=== PATIENT | female | born 1975 | race Caucasian/White ===

== ENCOUNTER 2021-05-02 08:48 | Emergency (ER) | payer MEDICAID ==
[~2021-05-02] VITALS: Ht 152.4 cm; Wt 86.4 kg
[2021-05-02 09:07] VITALS: BP 138/68
--- NOTE | 2021-05-02 09:14 | NUR ---
TENT 3
--- NOTE | 2021-05-02 09:15 | NUR ---
BIB SELF C/O COUGH, DELGADO, BODY ACHE, LEFT CHEST PAIN X 3 DAYS. PMH:DENIES
--- NOTE | 2021-05-02 14:13 | NUR ---
COVID ROSALIA SWAB DONE.
--- NOTE | 2021-05-02 14:19 | NUR ---
[facility] SPECIMEN SENT TO LAB.
[2021-05-02 14:25] LABS: APPEARANCE,URINE CLOUDY (CLEAR); BILIRUBIN,URINE NEGATIVE (NEGATIVE); BLOOD, URINE 3+ (NEGATIVE); COLOR,URINE YELLOW (YELLOW); LEUKOCYTE ESTERASE ,URINE TRACE (NEGATIVE); NITRITE, URINE POSITIVE (NEGATIVE); UGLUCOSE NEGATIVE (NEGATIVE)
[2021-05-02 14:29] LABS: RBC,URINE 80-100 /HPF (0-5)
[2021-05-02 14:33] LABS: BASOPHILS # (AUTO) 0.1 K/uL (0.00-0.22); BASOPHILS % (AUTO) 0.7 % (0.0-2.0); EOSINOPHILS # (AUTO) 0.2 K/uL (0-0.4); EOSINOPHILS % (AUTO) 1.4 % (0.0-4.0); HEMATOCRIT 35.7 % (36-48); HEMOGLOBIN 11.7 g/dL (12.0-16.0); LYMPHOCYTES # (AUTO) 3.4 K/uL (2.5-16.5); LYMPHOCYTES % (AUTO) 28.1 % (20.5-51.1); MEAN CORPUSCULAR HEMOGLOBIN 27 pg (27-31); MEAN CORPUSCULAR HGB CONC 33 g/dL (33-37); MEAN CORPUSCULAR VOLUME 83.1 fL (80-94); MONOCYTES # (AUTO) 0.8 K/uL (0.8-1.0); MONOCYTES % (AUTO) 6.5 % (1.7-9.3); NEUTROPHILS # (AUTO) 7.6 K/uL (1.8-7.7); NEUTROPHILS % (AUTO) 63.3 % (42.2-75.2); PLATELET COUNT (AUTO) 375 K/uL (140-450); RED CELL DISTRIBUTION WIDTH 14.9 % (11.6-13.7); WHITE BLOOD COUNT (AUTO) 12.1 K/uL (4.8-10.8)
[2021-05-02 14:43] LABS: ANION GAP 12.4 (8-16); CARBON DIOXIDE 26.4 mmol/L (21-32); CREATININE 0.7 mg/dL (0.6-1.3); POTASSIUM 3.8 mmol/L (3.5-5.1)
[2021-05-02] MEDS ORDERED: CEPH-588 PO (15:41)
[2021-05-02 16:00] VITALS: BP 145/79
--- NOTE | 2021-05-02 16:00 | NUR ---
Lab work, RAD, Covid results printed and handed to pt.
== END 2021-05-02 16:05 | disposition home or self-care (01) ==
LOC: MED 08:48
DX: J06.9 Acute upper respiratory infection, unspecified (principal); Z20.822 Contact with and (suspected) exposure to COVID-19; N39.0 Urinary tract infection, site not specified; Z79.899 Other long term (current) drug therapy
CPT/HCPCS: 36415; 71045; 80048; 81001; 84484; 85025; 87086; 93005; 99285

== ENCOUNTER 2021-12-13 08:48 | Emergency (ER) | payer MEDICAID ==
[~2021-12-13] VITALS: Ht 152.4 cm; Wt 86.2 kg
[~2021-12-13 08:48] MED LIST: CEPH-588 PO
[2021-12-13 08:58] VITALS: BP 140/71
[2021-12-13] MEDS ORDERED: HYDROcodone/APAP 10/325 MG 1 TAB TAB PO ONE (09:20)
--- NOTE | 2021-12-13 09:20 | NUR ---
US AT BEDSIDE
--- NOTE | 2021-12-13 09:22 | NUR ---
46 Y/O FEMALE C/O RIGHT BREAST PAIN 06/04 DESCRIBES BURNING X4DAYS. DENIES FEVER/CHILLS. DENIES N/V/D. PT ALSO C/O HEADACHE. PT STATES SHE USED COLD COMPRESSES WITH SOME RELIEF. DENIES PMH NKA
[2021-12-13] MEDS ORDERED: LIDOCAINE/EPI 2% 1:100000 20 ML VIAL INJ ONE (10:10)
[2021-12-13] MEDS ORDERED: CLIN300C2 PO (12:43)
[2021-12-13] MEDS ORDERED: IBUP-2213 PO (12:43)
[2021-12-13] MEDS ORDERED: HYDR-5080 PO (12:43)
[2021-12-13 13:17] VITALS: BP 142/73
--- NOTE | 2021-12-13 13:19 | NUR ---
Patient discharged with v/s stable. Written and verbal after care instructions given and explained. Patient alert, oriented and verbalized understanding of instructions. Ambulatory with steady gait. All questions addressed prior to discharge. ID band removed. Patient advised to follow up with PMD. Rx of CLINDAMYCIN, NORCO, IBUPROFEN given. Patient educated on indication of medication including possible reaction and side effects. Opportunity to ask questions provided and answered.
== END 2021-12-13 13:19 | disposition home or self-care (01) ==
LOC: MED 08:48
DX: N61.1 Abscess of the breast and nipple (principal); Z79.899 Other long term (current) drug therapy
CPT/HCPCS: 10060; 76641; 99284; J2001; Q0092

== ENCOUNTER 2021-12-14 15:20 | Emergency (ER) | payer MEDICAID ==
[~2021-12-14] VITALS: Ht 152.4 cm; Wt 86.2 kg
[~2021-12-14 15:20] MED LIST changes: +CLIN300C2 PO; +HYDR-5080 PO; +IBUP-2213 PO
--- NOTE | 2021-12-14 15:36 | NUR ---
PT AMBULATED TO ER BED 9 WITH A STEADY GAIT FOR BEDSIDE TRIAGE.
[2021-12-14 15:37] VITALS: BP 132/89
--- NOTE | 2021-12-14 15:42 | NUR ---
46 Y/O FEMALE HERE FOR WOUND CHECK S/P I&D DONE X2DAYS. PT STATES SHE HAD APPT WITH PCP BUT APPT WAS CANCELLED, REFERRED TO ER. DENIES PAIN. DENIES FEVER/CHILLS. DENIES N/V. DENIES PMH NKA
--- NOTE | 2021-12-14 15:55 | NUR ---
Female Bottle Gauger accompanied female patient for BREAST Exam.
[2021-12-14 16:03] VITALS: BP 132/89
--- NOTE | 2021-12-14 16:04 | NUR ---
Patient discharged with v/s stable. Written and verbal after care instructions given FOR INCISION AND DRAINAGE CARE AFTER and explained. Patient verbalized understanding. Ambulatory with steady gait. All questions addressed prior to discharge. Advised to follow up with PMD.
== END 2021-12-14 16:00 | disposition home or self-care (01) ==
LOC: MED 15:20
DX: N61.1 Abscess of the breast and nipple (principal); Z79.899 Other long term (current) drug therapy; Z90.49 Acquired absence of other specified parts of digestive tract
CPT/HCPCS: 99281

== ENCOUNTER 2022-05-10 07:59 | Emergency (ER) | payer MEDICAID ==
[~2022-05-10] VITALS: Ht 152.4 cm; Wt 81.6 kg
[2022-05-10 08:18] VITALS: BP 119/75
--- NOTE | 2022-05-10 08:22 | NUR ---
PT AMB TO BED 7.
--- NOTE | 2022-05-10 08:35 | NUR ---
DR GODFREY AT BEDSIDE.
[2022-05-10] MEDS ORDERED: IBUPROFEN 600 MG TAB PO ONE (08:40)
[2022-05-10] MEDS ORDERED: ACETAMINOPHEN EXTRA STRENGTH 500 MG TAB PO ONE (08:40)
--- NOTE | 2022-05-10 08:43 | NUR ---
46 Y/O F BIB SELF C/O LEFT EAR PAIN 7/10 FOR 3 DAYS AND MID LOWER BACK PAIN X 7/10 FOR 5 DAYS. NKA OR PMH
[2022-05-10] MEDS ORDERED: AMOX-1230 PO (09:06)
[2022-05-10] MEDS ORDERED: ACET-10509 PO (09:06)
[2022-05-10] MEDS ORDERED: VALA1TAB40 PO (09:06)
--- NOTE | 2022-05-10 09:14 | NUR ---
Patient discharged with v/s stable. Written and verbal after care instructions given and explained. Patient alert, oriented and verbalized understanding of instructions. Ambulatory with steady gait. All questions addressed prior to discharge. ID band removed. Patient advised to follow up with PMD. Rx of ACETAMINOPHEN TAB, AMOXICILLIN/POTASSIUM CLAV, VALACYCLOVIR HCI given. Opportunity to ask questions provided and answered.
--- NOTE | 2022-05-10 09:19 | NUR ---
Chart checked and completed. The patient's care was reviewed and supervised by Daniella Lundberg RN.
== END 2022-05-10 09:14 | disposition home or self-care (01) ==
LOC: MED 07:59
DX: H66.92 Otitis media, unspecified, left ear (principal); B02.21 Postherpetic geniculate ganglionitis; E11.9 Type 2 diabetes mellitus without complications; Z90.49 Acquired absence of other specified parts of digestive tract; Z79.899 Other long term (current) drug therapy; Z79.2 Long term (current) use of antibiotics; Z79.891 Long term (current) use of opiate analgesic; Z79.1 Long term (current) use of non-steroidal anti-inflammatories (NSAID)
CPT/HCPCS: 81002; 81025; 99283